=== PATIENT | male | born 1965 | race Caucasian/White ===

== ENCOUNTER 2017-05-21 09:55 | Emergency (ER) | payer OTHER ==
[~2017-05-21] VITALS: Ht 182.9 cm; Wt 83.0 kg
[~2017-05-21 09:55] MED LIST: FLEXERIL10 MG PO; LISINOPRIL-HYDR1 TA1 PO; NORCO 325 MG-51 TAB PO
--- NOTE | 2017-05-21 10:14 | ED NECK/BACK PAIN COMPLAINT ---
History of Present Illness General Chief Complaint: Low Back Pain/Injury Stated Complaint: BACK PAIN Source: patient, EMS Exam Limitations: no limitations Vital Signs & Intake/Output Vital Signs & Intake/Output Vital Signs Date Time Temp Pulse Resp B/P B/P Pulse O2 O2 Flow FiO2 Mean Ox Delivery Rate 05/21 1122 98.4 91 18 152/92 95 Room Air 05/21 1003 98 Room Air 05/21 1000 97.2 80 18 144/92 98 Room Air Allergies Coded Allergies: NO KNOWN ALLERGIES (01/22/11) Reconcile Medications Hydrochlorothiazide 12.5 MG TABLET 1 TAB PO DAILY HEART (Reported) Lisinopril 20 MG TABLET 1 TAB PO DAILY HEART (Reported) Rosuvastatin Calcium (Crestor) 10 MG TABLET 1 TAB PO DAILY CHOLESTEROL ( Reported) Triage Note: 51 YEAR OLD MALE TO ER VIA AMBULANCE FROM HIS HOME, STATES THAT YESTERDAY HE TWISTED AND FELT INSTANT LOW BACK PAIN THAT DROPPED HIM TO HIS KNEES, STATES THAT HE HAS A HISTORY OF BACK PROBLEMS. PAIN HAS BEEN CONSTANT 12/04 . TOOK 2 PERCOCET PO WITH NO RELIEF LAST PM. PT ABLE TO AMBULATE BUT WITH A LOT OF PAIN. DENIES URINARY SYMPTOMS OR LOSS OF BOWELS Triage Nurses Notes Reviewed? yes Onset: YESTERDAY Duration: hour(s):, constant, continues in ED, getting worse Timing: recent history Quality/Severity: severe, sharpness Location: LOW BACK R>L Radiation: none Method of Injury: twisted HPI: Patient presents for evaluation of his severe primarily right sided back pain that occurred abruptly yesterday while working as a [employer]. Patient stated he had a sudden onset while turning. He applied ice and tried Percocet without improvement. The pain worsens with movement and palpation. Patient denies any loss of sensation or urinary or fecal incontinence or urinary retention. He denies any associated fever or cold symptoms. He has been suffering from back pain for a number of years but has never been in pain management. He also refers past medical history of hypertension. Past History Travel History Traveled to [place] past 21 day No Medical History Any Pertinent Medical History? 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 No Review of Systems Review of Systems Constitutional: Reports: no symptoms. Eyes: Reports: no symptoms. Ears, Nose, Throat, Mouth: Reports: no symptoms. Respiratory: Reports: no symptoms. Cardiovascular: Reports: no symptoms. Gastrointestinal/Abdominal: Reports: no symptoms. Musculoskeletal: Reports: see HPI. Skin: Reports: no symptoms. Neurological/Psychological: Reports: no symptoms. All Other Systems: Reviewed and Negative Physical Exam Physical Exam Neck: SEE BELOW Comments: Gen.: Well-nourished, well-developed, no acute respiratory distress. Mild to moderate distress while at rest secondary to back pain. Pain worsens with movement. Head: Normocephalic, atraumatic. Eyes: Normal inspection bilaterally Ears: Normal inspection bilaterally Nose: Normal inspection Throat/mouth : Moist mucosa Neck: Supple, full range of motion, no goiter Lungs: Quiet respirations Back: Decreased range of motion secondary to pain. Mild Tenderness over the lumbosacral spine without associated soft tissue swelling ecchymoses or erythema. Tenderness of the sacroiliac regions bilaterally, right greater than left. Extremities: Normal range of motion grossly, lower extremities: No straight leg raise sign, sensation intact bilaterally (no saddle paresthesias), deep tendon reflexes normal bilaterally, sensation to light touch intact bilaterally. Unable to fully assess strength given the patient's severe pain with movement currently. Neurologic: Cranial nerves grossly intact, speech is clear Skin: warm and dry Psychiatric: Calm, cooperative, no apparent delusions or hallucinations Core Measures CVA/TIA Diagnosis: No Progress Differential Diagnosis: cauda equina syn, herniated disc, myofascial strain Plan of Care: Orders Procedure Date/time Status XRY-LUMBOSACRAL SPINE AP & LAT 05/21 1110 Active Current Medications Sig/Dewey Start time Last Medication Dose Stop Time Status Admin Morphine Sulfate 6 MG ONCE ONE 05/21 1230 UNVr (Morphine) 05/21 1231 Diagnostic Imaging: Discussed w/RAD: Radiology Read. Radiology Impression: PATIENT: ISAK ADDISON PRESENT AGE: 51 PATIENT ACCOUNT NO: [id number] : 66 LOCATION: [facility] ORDERING PHYSICIAN: Blaze Sevilla MD SERVICE DATE: 05/21/17 EXAM TYPE : RAD - XRY-LUMBOSACRAL SPINE AP & LAT EXAMINATION: XR LUMBOSACRAL SPINE CLINICAL INFORMATION: Low back pain following twisting. COMPARISON: Lumbosacral spine done on 04/26/2014. TECHNIQUE: 2 views, 5 images of the lumbosacral spine were obtained. FINDINGS: Nonspecific straightening of the lumbosacral spine appears similar to prior study dated 04/26/2014. Mild endplate osteophyte formations and decreased disc height consistent with mild multilevel spondylosis related changes are noted at L3-L4, L4-L5. These appear unchanged. The height of the lumbar vertebrae is well maintained. The remainder of the intervertebral disc height is well maintained. The posterior appendages are intact. The paraspinal soft tissues are unremarkable. Note is made of minimal mid lumbar dextroscoliosis, unchanged. Overall, no significant change since 04/26/2014. IMPRESSION: Stable appearance of the lumbosacral spine, unchanged since 2014. Reidentified mild multilevel degenerative spondylosis at L3-L4 and L4-L5 with minimal mid lumbar dextroscoliosis. DICTATED BY: Marivel Bhat MD DATE/ TIME DICTATED:05/21/171157 TECHNICAL STAFF ENGINEER:VINI DATE/TIME TRANSCRIBED: 05/21/171157 CONFIDENTIAL, DO NOT COPY WITHOUT APPROPRIATE AUTHORIZATION. < Electronically signed in Other Vendor System> SIGNED BY: Marivel Bhat MD 05/21/17 1249 Comments: 05/21/2017 11:00:54 AM I was just notified that Isak appears to have left the emergency department without notifying emergency Department staff. 05/21/2017 11:05:25 AM Isak has returned to the emergency department stretcher with his mother who convinced him to return. Departure Departure Disposition: HOME OR SELF CARE Condition: Stable Clinical Impression Primary Impression: Low back strain Qualifiers: Encounter type: initial encounter Qualified Code: S39.012A - Strain of muscle, fascia and tendon of lower back, initial encounter Secondary Impressions: Degenerative disc disease, lumbar, Spondylosis of lumbar spine Referrals: Sharri ALBERT,Gildardo Gimenez Additional Instructions: Rest, no exertion or heavy lifting. Do not work over the next 72 hours. Prednisone as needed for back pain, Flexeril as needed for muscle spasms. You may add Percocet if needed. Follow-up with your primary care physician or the [facility] practice ( ) for follow-up within 72 hours. Return if any concerns or sudden worsening or if you're unable to follow up as outlined above. Please note that there might be incidental findings in your evaluation that are unrelated to the current emergency department visit. Please notify your primary care doctor about this emergency department visit in order to obtain and review all of the testing performed so that these incidental findings can be monitored as needed. If you had an x-ray performed, please understand that some fractures may not be seen on the initial set of x-rays. If your symptoms persist you might need a repeat set of x-rays to check for such a fracture. If you had a laceration evaluated, please understand that foreign bodies such as glass or wood may not be visible to the naked eye or on plain x-rays. If the wound becomes red, swollen, increasingly more painful or if there is any drainage from the wound, please have it reevaluated by a physician for the possibility of a retained foreign body. If you're unable to follow up as outlined in the discharge instructions please return to the emergency department. Thank you for choosing the [facility] Emergency Department for your care. It was a pleasure to serve you today. Blaze Sevilla M.D. [facility] Departure Forms: Customer Survey General Discharge Information Prescriptions: Current Visit Scripts Prednisone (Deltasone) 3 TAB PO DAILY #9 TAB BEGIN TOMORROW Cyclobenzaprine HCl 1 TAB PO Q8 PRN MUSCLE SPASMS #21 TAB Oxycodone HCl/Acetaminophen (Percocet 5-325 MG Tablet) 1 TAB PO Q6P PRN pain #10 TAB
[2017-05-21 11:22] VITALS: BP 152/92
[2017-05-21] MEDS ORDERED: LISINOPRIL20 M1 PO (11:38)
[2017-05-21] MEDS ORDERED: CRESTOR10 M1 PO (11:38)
[2017-05-21] MEDS ORDERED: HYDROCHLOROTH12.5 M2 PO (11:38)
--- NOTE | 2017-05-21 12:49 | RADIOLOGY REPORT ---
EXAMINATION: XR LUMBOSACRAL SPINE CLINICAL INFORMATION: Low back pain following twisting. COMPARISON: Lumbosacral spine done on 04/26/2014. TECHNIQUE: 2 views, 5 images of the lumbosacral spine were obtained. FINDINGS: Nonspecific straightening of the lumbosacral spine appears similar to prior study dated 04/26/2014. Mild endplate osteophyte formations and decreased disc height consistent with mild multilevel spondylosis related changes are noted at L3-L4, L4-L5. These appear unchanged. The height of the lumbar vertebrae is well maintained. The remainder of the intervertebral disc height is well maintained. The posterior appendages are intact. The paraspinal soft tissues are unremarkable. Note is made of minimal mid lumbar dextroscoliosis, unchanged. Overall, no significant change since 04/26/2014. IMPRESSION: Stable appearance of the lumbosacral spine, unchanged since 04/26/2014. Reidentified mild multilevel degenerative spondylosis at L3-L4 and L4-L5 with minimal mid lumbar dextroscoliosis.
[2017-05-21] MEDS ORDERED: DELTASONE20 MG PO (13:14)
[2017-05-21] MEDS ORDERED: CYCLOBENZAPRINE10 M1 PO (13:14)
[2017-05-21] MEDS ORDERED: PERCOCET 5-3251 EACH PO (13:14)
== END 2017-05-21 13:19 ==
LOC: ERH 09:55
DX: S39.012A Strain of muscle, fascia and tendon of lower back, initial encounter (principal); M51.36 Other intervertebral disc degeneration, lumbar region; M47.816 Spondylosis without myelopathy or radiculopathy, lumbar region; X58.XXXA Exposure to other specified factors, initial encounter; Y92.9 Unspecified place or not applicable; Y93.9 Activity, unspecified
CPT/HCPCS: 72100; 96372; J1885; J2930